=== PATIENT | female | born 1935 | race Caucasian/White ===

== ENCOUNTER → 2017-02-26 | Outpatient (CLI) | payer OTHER, MEDICARE | LOC: BHFA 11:30 | PROVIDERS: ATTEND Internal Medicine Cardiovascular Disease | DX: I48.91 Unspecified atrial fibrillation (principal); I34.9 Nonrheumatic mitral valve disorder, unspecified ==

== ENCOUNTER → 2017-07-13 | Outpatient (CLI) | payer OTHER, MEDICARE | LOC: CIMAGING 15:52 | PROVIDERS: ATTEND Internal Medicine | DX: R07.89 Other chest pain (principal); W19.XXXA Unspecified fall, initial encounter; I51.7 Cardiomegaly | CPT/HCPCS: 71101-PO ==

== ENCOUNTER → 2017-12-14 | Outpatient (CLI) | payer OTHER, MEDICARE | LOC: BHFA 14:00 | PROVIDERS: ATTEND Internal Medicine Interventional Cardiology | DX: I48.91 Unspecified atrial fibrillation (principal); Z95.2 Presence of prosthetic heart valve ==

== ENCOUNTER → 2017-12-15 | Outpatient (CLI) | payer OTHER, MEDICARE | LOC: BHFA 13:15 | PROVIDERS: ATTEND Nurse Practitioner Adult Health | DX: I48.91 Unspecified atrial fibrillation (principal); I42.9 Cardiomyopathy, unspecified; R07.89 Other chest pain ==

== ENCOUNTER 2017-12-17 08:01 | Day surgery (SDC) | payer OTHER, MEDICARE ==
[2017-12-17] MEDS ORDERED: NS 1,000 ML IV ONE (08:02)
[2017-12-17] MEDS ORDERED: diphenhydrAMINE 25 MG CAP PO ONE (08:02)
[2017-12-17] MEDS ORDERED: ASPIRIN EC 325 MG TAB PO ONE (08:02)
[2017-12-17] MEDS ORDERED: DIAZEPAM 5 MG TAB PO ONE (08:02)
[2017-12-17] MEDS ORDERED: FAMOTIDINE 20 MG TAB PO ONE (08:02)
[2017-12-17] MEDS ORDERED: fentaNYL 100 MCG/2 ML INJ IVP ONE (08:03)
[2017-12-17] MEDS ORDERED: BENZOCAINE UNIT DOSE SPRAY HURRICAINE MM ONE (08:03)
[2017-12-17 08:39] LABS: PLATELET COUNT 92 10^3/uL (150-400)
--- NOTE | 2017-12-17 08:46 | CPEKG ---
Heart Rate: 81 RR Interval: 741 QRSD Interval: 120 QT Interval: 404 QTC Interval: 469 QRS Howard: 93 T Wave Howard: 236 EKG Severity - ABNORMAL ECG - EKG Impression: A-FLUTTER W/ PREDOM 4:1 AV BLOCK, A-RATE 315 EKG Impression: IVCD, CONSIDER ATYPICAL RBBB Electronically Signed By: Bharath Hilliard 17-Dec-2017 12:54:33
[2017-12-17 08:47] LABS: INR 1.76 (0.83-1.16); PROTIME(PATIENT) 20.6 SEC (12.0-15.0)
--- NOTE | 2017-12-17 09:12 | PDPROPOC ---
Sedation Plan of Care Sedation Plan of Care: vital signs stable, mental status noted, patient educated of risks, benefits, alternatives, patient can tolerate sedation ASA Classification: ASA 2 Planned drugs: fentanyl, midazolam Mallampati Score: Class 2 Mallampati Reference Image: Patient passed 3-3-2 rule?: Yes
--- NOTE | 2017-12-17 09:12 | PDHPUP ---
History & Physical Update H&P update statement: This history and physical update is based on an assessment of the patient which was completed after admission or registration (within 24 hours), but prior to the surgery/procedure. H&P update: H&P reviewed & patient examined, no change in patient's condition since H&P completed (Reviewed Lia Jacobo is a office note dated 12/15/2017 )
[2017-12-17] MEDS ORDERED: MIDAZOLAM 2 MG/2 ML VIAL IVP ONE (09:16)
[2017-12-17] MEDS ORDERED: MIDAZOLAM 2 MG/2 ML VIAL ONE ×2 (09:19→11:57)
[2017-12-17] MEDS ORDERED: ATROPINE SULFATE 1 MG/10 ML SYR ONE (09:20)
--- NOTE | 2017-12-17 11:54 | PDDXCAT ---
Diagnostic Cath Note - . Date: 12/17/17 Program Director: Shanita Indication: other (New onset cardiomyopathy. Chest pain) High-risk criteria on non-invasive testing: severe resting left ventricular dysfunction (LVEF<35%) - Procedure Access: right groin Procedure: left heart catheterization, coronary angiography, left ventriculogram - Materials Left Heart Cath size: 6F Left Heart Cath materials: JL4.0, pigtail, Marco's R Right Heart Cath size: 7F Right Heart Cath materials: PWP catheter - Findings-Left Heart Catheterization LM: Normal and bifurcates into the LAD and left circumflex. LAD: Large vessel reaching the apex. 3 diagonal vessels. There is no significant disease in the LAD or its branches. LCX: 2 principal obtuse marginals. No significant disease. RCA: Normal. Right dominant. No coronary disease. EDP: 13 LVEF: 30% with global hypokinesis Wall motion: Global hypokinesis - Findings-Right Heart Catheterization RA: 7 RV: 43/3 PA: 44/16 with a mean of 28 PAOP: 14 AO: 98/54. No gradient with pullback. Complications: None Estimated blood loss: <50ml Closure method: Angioseal Assessment: Normal coronary arteries. Nonischemic cardiomyopathy. Plan: Intensify medical management. Consider EP consultation for persistent atrial arrhythmia. Patient Problems: Problems Problem Status Onset Acute blood loss anemia Acute Hydropneumothorax Acute Prosthetic heart valve failure Acute S/P ablation of atrial fibrillation Acute S/P mitral valve replacement with bioprosthetic valve Acute S/P tricuspid valve repair Acute Valvular cardiomyopathy Acute Atrial fibrillation, chronic Chronic Chronic anticoagulation Chronic Chronic combined systolic and diastolic CHF (congestive heart failure) Chronic Hypothyroidism Chronic Non-Hodgkins lymphoma Chronic Tricuspid valve regurgitation, secondary Chronic
[2017-12-17] MEDS ORDERED: ONDANSETRON 4 MG/2 ML VIAL IVP PRN (11:56)
[2017-12-17] MEDS ORDERED: ATROPINE SULFATE 1 MG/10 ML SYR IVP PRN (11:56)
[2017-12-17] MEDS ORDERED: fentaNYL 100 MCG/2 ML INJ ONE (11:57)
[2017-12-17] MEDS ORDERED: LIDOCAINE 1% 300 MG/30 ML SDV ONE (11:57)
[2017-12-17] MEDS ORDERED: IOPAMIDOL (ISOVUE-370) 150 ML BTL IV ONE (11:57)
--- NOTE | 2017-12-17 17:07 | ECHO ---
[email or web address] [address] [address] Main: [phone] Fax: Transesophageal Echocardiography Name: MALOU ANSARI MR#: [id number] Study Date: 12/17/2017 Study Time: 09:09 AM Date of : 1935 Age: 82 year(s) Height: ( ) Weight: ( ) BSA: Gender: Female Examination: KADE Indication: a fib, eval mv Image Quality: Adequate Contrast: Requested by: Brittany Diehl Heart Rate: Rhythm: BP: 104 mmHg/66 mmHg Procedure Staff Braze Operator: Belem Rae [facility] Reading Physician: Brittany Diehl MD Requesting Provider: KADE Exam Details Patient Consent: Risks, alternatives of procedure explained to patient, informed consent obtained. Conclusions: The ejection fraction is estimated to be 25-30 %. Global hypokinesis. Normal size right ventricle. Mildly reduced RV function. The left atrium is severely dilated. An agitated saline study was performed and was negative for intracardiac shunting. The left atrial appendage has been ligated but there is a persistent communication between the left atrium and the left atrial appendage as evidence by to and fro color Doppler flow. The right atrium is severely dilated. A bioprothetic mitral valve is in place. Mild MV prosthesis regurgitation. Trivial to mild aortic valve regurgitation. There is a tricuspid valve ring. Compared with 12/24/2015 LV systolic function is worse. Measurements: Chambers Valvular Assessment AV/MV Valvular Assessment TV/PV Normal Normal Normal Name Value Range Name Value Range Name Value Range EF Range: 25-30 % MV meanP mmHg ( - ) Additional Measurements: Valvular Assessment AV/MV Patient: MALOU ANSARI Study Date: 12/17/2017 Page 1 of 2 09:09 AM Name Value MV VTI: 22.20 cm Findings: Left Ventricle: Normal size left ventricle. No LV hypertrophy. Severely reduced systolic LV function. The ejection fraction is estimated to be 25-30 %. Unable to assess diastolic dysfunction. Global hypokinesis. Right Ventricle: Normal size right ventricle. Mildly reduced RV function. Left Atrium: The left atrium is severely dilated. An agitated saline study was performed and was negative for intracardiac shunting. Left Atrial Appendage: The left atrial appendage is unilobular. The left atrial appendage has been ligated but there is a persistent communication between the left atrium and the left atrial appendage as evidence by to and fro color Doppler flow. Right Atrium: The right atrium is severely dilated. Mitral Valve: A bioprothetic mitral valve is in place. The mitral valve prosthesis exhibits normal function. The prosthetic mitral valve is normal. Mild MV prosthesis regurgitation. Aortic Valve: The aortic valve is tri-leaflet. Trivial to mild aortic valve regurgitation. Tricuspid Valve: There is a tricuspid valve ring. Trivial prosthesis regurgitation. Pulmonic Valve: The pulmonic valve is normal in appearance and function. There is no pulmonic regurgitation seen. Aorta: The aorta is normal. Pericardium: No pericardial effusion. Exam Comments: l1n (No Signature Object) Patient: MALOU ANSARI Study Date: 12/17/2017 Page 2 of 2 09:09 AM [id number]
== END 2017-12-17 16:00 | disposition home or self-care (01) ==
LOC: FCATH 08:01
PROVIDERS: ATTEND Internal Medicine Cardiovascular Disease
PROC: B246ZZ4 Ultrasonography of Right and Left Heart, Transesophageal (ICD-10-PCS; principal; 2017-12-17)
PROC: B2151ZZ Fluoroscopy of Left Heart using Low Osmolar Contrast (ICD-10-PCS; principal; 2017-12-17)
PROC: B2111ZZ Fluoroscopy of Multiple Coronary Arteries using Low Osmolar Contrast (ICD-10-PCS; principal; 2017-12-17)
PROC: 4A023N8 Measurement of Cardiac Sampling and Pressure, Bilateral, Percutaneous Approach (ICD-10-PCS; principal; 2017-12-17)
DX: I42.9 Cardiomyopathy, unspecified (principal); R07.9 Chest pain, unspecified; I48.91 Unspecified atrial fibrillation; I05.9 Rheumatic mitral valve disease, unspecified; I48.92 Unspecified atrial flutter; E03.9 Hypothyroidism, unspecified; Z79.01 Long term (current) use of anticoagulants; Z85.3 Personal history of malignant neoplasm of breast; Z85.72 Personal history of non-Hodgkin lymphomas; Z87.440 Personal history of urinary (tract) infections; Z95.2 Presence of prosthetic heart valve; Z96.649 Presence of unspecified artificial hip joint
CPT/HCPCS: C1760; J0461; J1644; J2250; J3010; Q9967

== ENCOUNTER → 2017-12-27 | Outpatient (CLI) | payer OTHER, MEDICARE | LOC: BHFA 09:15 | PROVIDERS: ATTEND Nurse Practitioner Adult Health | DX: I48.91 Unspecified atrial fibrillation (principal); I42.9 Cardiomyopathy, unspecified ==

== ENCOUNTER 2018-04-23 09:38 | Emergency (ER) | payer OTHER, MEDICARE ==
--- NOTE | 2018-04-23 09:55 | EDPHY ---
H & P Stated Complaint: left knee swelling Time Seen by Provider: 04/23/18 09:45 HPI/ROS: 82 yo F presents c/o fall several days ago , she states she tripped on a curb, landing primarily on her left side, hitting her face and primarily her left knee. She denies loss of consciousness , no headache, no nausea or vomiting. She denies facial pain despite facial bruising. Overall she states she feels well. She states she came in today to have her left knee check because of the swelling , mild pain. Review of systems As per HPI-bruising to face and left knee General no fever no chills no weakness HEENT no eye pain no eye discharge. No eye redness, no sore throat Respiratory no cough, no shortness of breath Cardiac no chest pain, no peripheral edema GI no abdominal pain, no diarrhea, no constipation, no nausea, no vomiting no flank pain, no hematuria, no dysuria Musculoskeletal no myalgias, no joint pain Heme positive easy bruising, no easy bleeding Endo no polyuria, no polydipsia Skin no rashes, no pruritus Neuro no syncope, no dizziness, no headaches Psych is no suicidal ideation, no homicidal ideation Source: Patient, Family Exam Limitations: No limitations - Personal History Current Tetanus/Diphtheria Vaccine: Yes - Medical/Surgical History Hx Asthma: No Hx Chronic Respiratory Disease: No Hx Diabetes: Yes Hx Cardiac Disease: Yes Hx Renal Disease: No Hx Cirrhosis: No Hx Alcoholism: No Hx HIV/AIDS: No Hx Splenectomy or Spleen Trauma: No Other PMH: Thyroid - Family History Significant Family History: No pertinent family hx - Social History Smoking Status: Never smoked Alcohol Use: None Drug Use: None - Physical Exam Exam: 82-year-old female alert and oriented in no acute distress nontoxic appearance, afebrile Normocephalic, scalp-no ecchymosis no hematoma Facial ecchymoses to left chin and left infraorbital area, with some dependent drainage into left neck Nares-no bleeding , no septal hematoma Pupils round reactive to light bilaterally, extraocular muscles intact No hemotympanum bilaterally Neck supple nontender Lungs clear to auscultation bilaterally Heart are regular rate and rhythm Abdomen bowel sounds present soft nontender Extremities no cyanosis no clubbing no edema, no calf tenderness Left knee-full range of motion, no erythema, no increased warmth Positive moderate sized hematoma overlying patella Neuro alert and oriented, speech coherent, clear, cranial nerves intact, gait intact, motor 5/5 bilaterally, no sensory deficit, negative pronator drift Constitutional: Initial Vital Signs Temperature (C) 36.4 C 04/23/18 09:55 Heart Rate 56 L 04/23/18 09:55 Respiratory Rate 16 04/23/18 09:55 Blood Pressure 103/56 L 04/23/18 09:55 O2 Sat (%) 95 04/23/18 09:55 O2 Delivery Mode Room Air Allergies/Adverse Reactions: No Known Allergies Allergy (Verified 04/23/18 09:52) Home Medications: Medication Instructions Recorded Multivitamins [Multivitamin (*)] 1 each PO DAILY 12/28/14 Vit C/Dl-E AC/Lut/Copper/Znox 1 each PO BID 12/28/14 [Preservision Softgel] metroNIDAZOLE [Metrogel] 1 jia TP HS 12/28/14 Anastrozole [Arimidex 1 mg (*)] 1 mg PO DAILY 12/16/17 Calcium Carb W/Vit D [Calcium Carb 500 mg PO DAILY 12/16/17 W/Vit D 500/200 (*)] Cholecalciferol Vit D3 [Vitamin D3 2,000 units PO DAILY 12/16/17 2000 units tab (OTC)] Cmped E2 0.625mg/Gm Cream 1 jia TP DAILY 12/16/17 Denosumab [Prolia] 60 mg [id number] 12/16/17 Levothyroxine [Synthroid 88 mcg 88 mcg PO MOTUWETHFRSA@06 12/16/17 (*)] Spironolactone [Aldactone 25 MG 25 mg PO DAILY 12/16/17 (*)] Carvedilol [Coreg] 12.5 mg PO BID #60 tablet 12/17/17 Warfarin Sodium [Coumadin 7.5MG 7.5 mg PO DAILY16 #0 12/17/17 (*)] Lasix 04/23/18 Medical Decision Making ED Course/Re-evaluation: Patient seen and evaluated for fall from several days ago with her primary concern being swelling of her left knee. Left knee x-ray sts, no fracture, no effusions Imp Hematoma overlying patella facial ecchymoses Plan Home, ice, follow up pcp Educated regarding duration of bruising, likelihood of appearance of spread secondary to gravity and reasons to return. Differential Diagnosis: Differential diagnosis considered but not limited to: Facial fracture, patella fracture, internal knee derangement, hematoma overlying patella, facial hematoma Departure - Departure Disposition: Home, Routine, Self-Care Clinical Impression: Hematoma of face, Hematoma of lower extremity Condition: Good Instructions: Hematoma (ED) Referrals: Mikhail Munoz MD [Primary Care Provider] - As per Instructions
[2018-04-23 12:51] VITALS: BP 119/63
== END 2018-04-23 12:28 | disposition home or self-care (01) ==
LOC: CED 09:38
DX: S00.83XA Contusion of other part of head, initial encounter (principal); S80.02XA Contusion of left knee, initial encounter; W01.0XXA Fall on same level from slipping, tripping and stumbling without subsequent striking against object, initial encounter; Y92.9 Unspecified place or not applicable; Y93.9 Activity, unspecified; Y99.9 Unspecified external cause status
CPT/HCPCS: 73564-PO

== ENCOUNTER → 2018-04-26 | Outpatient (CLI) | payer OTHER, MEDICARE | LOC: FIMAGING 15:21 | PROVIDERS: ATTEND Nurse Practitioner Adult Health | DX: S00.83XA Contusion of other part of head, initial encounter (principal); Z79.01 Long term (current) use of anticoagulants ==

== ENCOUNTER → 2018-05-03 | Outpatient (CLI) | payer OTHER, MEDICARE | LOC: CIMAGING 11:22 | PROVIDERS: ATTEND Orthopaedic Surgery | DX: S80.02XA Contusion of left knee, initial encounter (principal); M11.262 Other chondrocalcinosis, left knee | CPT/HCPCS: 73700-PO ==

== ENCOUNTER → 2018-08-17 | Outpatient (CLI) | payer OTHER, MEDICARE | LOC: CIMAGING 10:59 | PROVIDERS: ATTEND Internal Medicine Cardiovascular Disease | DX: I48.91 Unspecified atrial fibrillation (principal); Z79.899 Other long term (current) drug therapy | CPT/HCPCS: 71046-PO ==

== ENCOUNTER → 2018-11-30 | Outpatient (CLI) | payer OTHER, MEDICARE | LOC: BHFA 11:30 | PROVIDERS: ATTEND Internal Medicine Cardiovascular Disease | DX: I48.91 Unspecified atrial fibrillation (principal); I50.9 Heart failure, unspecified ==

== ENCOUNTER 2019-01-09 20:05 | Emergency (ER) | payer OTHER, MEDICARE | END 2019-01-09 21:08 | disposition home or self-care (01) | LOC: CED 20:05 ==